=== PATIENT | male | born 1985 | race Caucasian/White ===

== ENCOUNTER 2022-09-16 09:01 | Emergency (ER) | payer MEDICAID ==
[~2022-09-16] VITALS: Ht 188 cm; Wt 77.3 kg
[2022-09-16] MEDS ORDERED: TETanus/Pertussis (Acell)/Diphther VAC/PF (Tdap-Adult) 0.5ml syringe IMVAC ONE (09:15)
[2022-09-16 09:32] VITALS: BP 124/89
== END 2022-09-16 10:53 | disposition home or self-care (01) ==
LOC: ER 09:02
DX: S80.811A Abrasion, right lower leg, initial encounter (principal); S00.31XA Abrasion of nose, initial encounter; X58.XXXA Exposure to other specified factors, initial encounter; Y93.89 Activity, other specified; Y92.89 Other specified places as the place of occurrence of the external cause
CPT/HCPCS: 90471; 90715; 99283

== ENCOUNTER 2023-08-07 19:03 | Emergency (ER) | payer MEDICAID, OTHER ==
[~2023-08-07] VITALS: Ht 188 cm; Wt 72.0 kg
[2023-08-07 19:06] VITALS: BP 147/102; PULSE 113; RESP 20; TEMP 98.1; O2SAT 95
== END 2023-08-07 19:33 ==
LOC: ER 19:04
DX: Z04.2 Encounter for examination and observation following work accident (principal)
CPT/HCPCS: 99283